=== PATIENT | female | born 1995 | race Caucasian/White ===

== ENCOUNTER 2023-12-25 18:35 | Emergency (ER) | payer SELFPAY ==
[2023-12-25 18:54] LABS: APPEARANCE,URINE CLOUDY; COLOR,URINE YELLOW; GLUCOSE,URINE NEGATIVE (NEGATIVE); KETONES,URINE NEGATIVE (NEGATIVE); LEUKOCYTE ESTERASE,URINE SMALL (NEGATIVE); NITRITE,URINE POSITIVE (NEGATIVE); OCCULT BLOOD,URINE MODERATE (NEGATIVE); PROTEIN,URINE 100 mg/dL (NEGATIVE); UROBILINOGEN,URINE 0.2 EU/dL (<2.0)
[2023-12-25 18:55] LABS: BILIRUBIN,URINE SMALL (NEGATIVE)
[2023-12-25 19:02] LABS: BACTERIA,URINE FEW (NEGATIVE); EPITHELIAL CELLS,URINE FEW (NONE-FEW); MUCUS,URINE LIGHT (NONE-MOD); RBC,URINE TOO NUMEROUS TO CT (0-2/HPF); WBC,URINE 20-30 (0-5/HPF)
[2023-12-25] MEDS: cefTRIAXone 500 MG in Lidocaine 1% 1 ML IM STA (19:34)
== END 2023-12-25 19:51 | disposition home or self-care (01) ==
LOC: MW.ED 18:35
DX: N30.01 Acute cystitis with hematuria (principal); Z75.8 Other problems related to medical facilities and other health care; Z88.0 Allergy status to penicillin
CPT/HCPCS: 81001; 81025; 87086; 96372; 99283; J0696; J3490